=== PATIENT | male | born 1955 | race Caucasian/White ===

== ENCOUNTER 2022-10-07 15:40 | Outpatient (CLI) | payer MEDICARE, OTHER ==
[2022-10-07 16:29] LABS: Bilirubin Neg (Negative); Blood, Urine Negative (Negative); Clarity Clear (Clear); Glucose, Urine (Dipstick) Normal (Negative); Ketone, Urine Negative (Negative); Leukocyte Negative (Negative); Nitrite Negative (Negative); Protein, Urine (Dipstick) Negative (Neg-Trace); Specific Gravity, Urine 1.015 (1.005-1.030); pH, Urine 6.5 (5.0-9.0)
== END 2022-10-07 15:41 | disposition home or self-care (01) ==
LOC: LABBT 15:40
PROVIDERS: ATTEND Orthopaedic Surgery
DX: Z01.818 Encounter for other preprocedural examination (principal); M17.11 Unilateral primary osteoarthritis, right knee
CPT/HCPCS: 71046; 80048; 81003; 85025; 85610; 86850; 86900; 86901; 87081; 93005; 93010

== ENCOUNTER 2022-10-12 05:28 | Observation (INO) | payer MEDICARE, OTHER ==
[2022-10-07 16:56] LABS: #Eosinphils 0.1 10x3/uL (0.0-0.5); #Monocytes 0.4 10x3/uL (0.0-1.1); #Neutrophils 2.3 10x3/uL (1.5-8.4); %Basophils 0.7 % (0.0-2.0); %Eosinophils 1.6 % (0.0-6.0); %Lymphocytes 34.9 % (18.0-47.0); %Monocytes 9.8 % (0.0-10.0); Hemoglobin 13.5 g/dL (13.5-17.5); Mean Corpuscular HGB CONC 33.8 g/dL (32.0-36.0); Mean Corpuscular Hemoglobin 33.4 pg (27.0-33.0); Mean Corpuscular Volume 98.8 fl (81.2-95.1); Mean Platelet Volume 10.8 fl (7.4-10.4); Platelet Count 244 10x3/uL (150-450); RBC Distribution Width 13.2 % (11.5-14.5); Red Blood Cell (RBC) Count 4.04 10x6/uL (4.32-5.72); White Blood Cell (WBC) Count 4.4 10x3/uL (3.5-10.5)
[2022-10-07 17:02] LABS: INR-International Normal Ratio 0.9; Prothrombin Time 10.3 sec (9.5-12.1)
[2022-10-07 17:10] LABS: Anion Gap 13 mmol/L (10-20); BUN (Urea Nitrogen) 12 mg/dL (8.4-25.7); Calc. Creatinine Clearance 0 mL/min (70-130); Calcium 8.9 mg/dL (7.8-10.44); Carbon Dioxide 32 mmol/L (23-31); Chloride 100 mmol/L (98-107); Estimated GFR 99; Glucose 154 mg/dL (80-115); Potassium 3.8 mmol/L (3.5-5.1); Sodium 141 mmol/L (136-145)
[2022-10-09 10:38] VITALS: BMI 30.1
[2022-10-12] MEDS ORDERED: Vancomycin (BATCH) 1.5 GRAM/300 ML BAG ONE (06:02)
[2022-10-12] MEDS ORDERED: CEFAZOLIN 2 GM VIAL ONE (06:03)
[2022-10-12] MEDS ORDERED: Sodium Chloride 0.9% 100 ML ONE ×2 (06:03→06:04)
[2022-10-12] MEDS ORDERED: Tranexamic Acid 1,000 MG/10 ML VIAL ONE ×2 (06:03→09:34)
[2022-10-12] MEDS ORDERED: Fentanyl 250 MCG/5 ML VIAL ONE (06:16)
[2022-10-12] MEDS ORDERED: Midazolam HCl 2 mg/2 ml Vial ONE (06:46)
[2022-10-12] MEDS ORDERED: Bupivacaine 0.25% HCL 30 ML VIAL ONE (06:52)
[2022-10-12] MEDS ORDERED: PROPOFOL 200 MG/20 ML VIAL ONE (06:55)
[2022-10-12] MEDS ORDERED: Dexamethasone 20 MG/5 ML VIAL ONE (06:55)
[2022-10-12] MEDS ORDERED: Ondansetron PF 4 MG/2 ML Vial ONE (06:55)
[2022-10-12] MEDS ORDERED: Acetaminophen 325 MG TAB PO PRN (07:39)
[2022-10-12] MEDS ORDERED: Fentanyl 100 MCG/2 ML VIAL SLOW IVP PRN (07:39)
[2022-10-12] MEDS ORDERED: Zolpidem Tartrate 5 MG TAB PO PRN ×2 (07:39→08:15)
[2022-10-12] MEDS ORDERED: Ondansetron PF 4 MG/2 ML Vial IVP PRN ×2 (07:39→08:15)
[2022-10-12] MEDS ORDERED: traMADol HCl 50 MG TAB PO PRN ×3 (07:39→08:15)
[2022-10-12] MEDS ORDERED: HYDROcodone/Acetaminophen 10/325 mg Tablet PO PRN ×3 (07:39→08:15)
[2022-10-12] MEDS ORDERED: diphenhydrAMINE 25 MG CAP PO PRN (07:39)
[2022-10-12] MEDS ORDERED: Promethazine HCl 25 MG/ML VIAL IM PRN ×3 (07:39→08:15)
[2022-10-12] MEDS ORDERED: Tranexamic Acid 1,000 MG in Sodium Chloride 0.9% 100 ML IVPB SCH (07:45)
[2022-10-12] MEDS ORDERED: HYDROmorphone 2 MG/ML VIAL SLOW IVP PRN (07:47)
[2022-10-12] MEDS ORDERED: Promethazine HCl 25 MG/ML VIAL IVPB PRN (07:47)
[2022-10-12] MEDS ORDERED: Ondansetron HCl/PF 4 MG/2 ML Vial IVP PRN (07:47)
[2022-10-12 08:01] LABS: SARS-CoV-2 NAA Rapid Test DETECTED (NotDetected)
[2022-10-12] MEDS ORDERED: Fentanyl 100 MCG/2 ML VIAL IV PRN (08:08)
[2022-10-12] MEDS ORDERED: Ropivacaine 0.2% 550 ML 550 ML NERVE BLCK SCH (08:15)
[2022-10-12] MEDS ORDERED: Non-Formulary Item 1 EACH (Multivit-Min/Folic/Vit K/Lycop [Men's Multivitamin Tablet] 1 E PO SCH (09:00)
[2022-10-12] MEDS ORDERED: Fentanyl 100 MCG/2 ML VIAL ONE (09:30)
[2022-10-12] MEDS ORDERED: HYDROmorphone 0.5 MG/0.5 ML SYRINGE ONE (09:30)
[2022-10-12] MEDS: Multivitamin W/ Minerals 1 TAB PO SCH (11:45)
[2022-10-12] MEDS: Aspirin 81 mg Enteric Coated Tablet PO SCH ×2 (11:45→21:10)
[2022-10-12] MEDS: Senokot S 8.6-50 MG TAB PO SCH ×2 (11:45→21:10)
[2022-10-12] MEDS: Ferrous Gluconate 324 MG TAB PO SCH ×2 (11:45→21:10)
[2022-10-12] MEDS: Calcium Carbonate 500 MG TAB PO SCH (11:45)
[2022-10-12] MEDS: Sodium Chloride 0.9% 1,000 ML IV SCH ×2 (11:46→18:32)
[2022-10-12] MEDS ORDERED: Ketorolac Tromethamine 30 MG/ML VIAL IVP SCH (12:00)
[2022-10-12] MEDS ORDERED: Ropivacaine 0.5% HCl/PF (150 MG/30 ML VIAL) ONE (12:31)
[2022-10-12] MEDS: CEFAZOLIN 2 GM in Sodium Chloride 0.9% 100 ML IVPB SCH ×2 (13:36→21:06)
[2022-10-12] MEDS: Ketorolac Tromethamine 30 MG/ML VIAL IVP SCH ×2 (13:36→21:11)
[2022-10-12] MEDS ORDERED: Vancomycin HCl 1.5 GM in Sodium Chloride 0.9% 250 ML 300 ML IVPB SCH (18:00)
[2022-10-12] MEDS ORDERED: Vancomycin 1.5 GRAM/300 ML BAG 1.5 GM in Premix Bag 1 BAG IVPB SCH (18:30)
[2022-10-12] MEDS ORDERED: Non-Formulary Item 1 EACH (Tadalafil [Cialis] 5 MG Tablet) PO SCH (21:00)
[2022-10-12] MEDS ORDERED: Pioglitazone HCl 15 MG TAB PO SCH (21:00)
[2022-10-12] MEDS ORDERED: Atorvastatin Calcium 40 MG TAB PO SCH (21:00)
[2022-10-12] MEDS ORDERED: Lisinopril 20 MG TAB PO SCH (21:00)
[2022-10-12] MEDS ORDERED: Amlodipine 5 MG TAB PO SCH (21:00)
[2022-10-12] MEDS: HYDROcodone/Acetaminophen 10/325 mg Tablet PO PRN (21:21)
[2022-10-13] MEDS: Sodium Chloride 0.9% 1,000 ML IV SCH ×2 (04:08→12:58)
[2022-10-13] MEDS: Ketorolac Tromethamine 30 MG/ML VIAL IVP SCH ×2 (05:20→13:42)
[2022-10-13] MEDS: HYDROcodone/Acetaminophen 10/325 mg Tablet PO PRN ×2 (05:21→12:07)
[2022-10-13 06:35] LABS: Hemoglobin 11.7 g/dL (14.0-18.0); Mean Corpuscular HGB CONC 33.4 g/dL (32.0-36.0); Mean Corpuscular Hemoglobin 34.6 pg (27.0-31.0); Mean Platelet Volume 8.4 fL (7.4-10.4); Platelet Count 234 10x3/uL (130-400); RBC Distribution Width 11.7 % (11.5-14.5); Red Blood Cell (RBC) Count 3.37 mill/uL (4.70-6.10); White Blood Cell (WBC) Count 7.6 10x3/uL (4.8-10.8)
[2022-10-13] MEDS ORDERED: Amlodipine 5 MG TAB PO SCH (06:53)
[2022-10-13] MEDS ORDERED: Lisinopril 20 MG TAB PO SCH (06:53)
[2022-10-13 07:55] LABS: Anion Gap 12 mmol/L (10-20); BUN (Urea Nitrogen) 10 mg/dL (8.4-25.7); Calc. Creatinine Clearance 138 mL/min (70-130); Calcium 8.3 mg/dL (7.8-10.44); Carbon Dioxide 27 mmol/L (23-31); Chloride 104 mmol/L (98-107); Estimated GFR 101; Glucose 146 mg/dL (80-115); Potassium 3.7 mmol/L (3.5-5.1); Sodium 139 mmol/L (136-145)
[2022-10-13] MEDS ORDERED: FLU VACC QS2022-23(65YR UP)/PF 240 MCG/0.7 ML SYRINGE IM ONE (09:00)
[2022-10-13] MEDS: Calcium Carbonate 500 MG TAB PO SCH (10:06)
[2022-10-13] MEDS: Multivitamin W/ Minerals 1 TAB PO SCH (10:06)
[2022-10-13] MEDS: Aspirin 81 mg Enteric Coated Tablet PO SCH (10:06)
[2022-10-13] MEDS: Senokot S 8.6-50 MG TAB PO SCH (10:06)
[2022-10-13] MEDS: Ferrous Gluconate 324 MG TAB PO SCH (10:06)
[2022-10-13 13:19] VITALS: BP 120/68; TEMP 98.6
== END 2022-10-13 13:55 | disposition home or self-care (01) ==
LOC: SDC 05:28 → SJJU 10:39
PROVIDERS: ADMIT Orthopaedic Surgery; ATTEND Orthopaedic Surgery
PROC: 0SRC0J9 Replacement of Right Knee Joint with Synthetic Substitute, Cemented, Open Approach (ICD-10-PCS; principal; 2022-10-12)
DX: M17.11 Unilateral primary osteoarthritis, right knee (principal); M92.521 Juvenile osteochondrosis of tibia tubercle, right leg; S83.522A Sprain of posterior cruciate ligament of left knee, initial encounter; U07.1 COVID-19; E11.9 Type 2 diabetes mellitus without complications; I10 Essential (primary) hypertension; E78.5 Hyperlipidemia, unspecified; Z79.84 Long term (current) use of oral hypoglycemic drugs; Z79.899 Other long term (current) drug therapy
CPT/HCPCS: 27447; 80048 ×2; 82962; 85025; 85027; 85610; 86850; 86900; 86901; 97110 ×2; 97116 ×2; 97530 ×2; A4306; C1713; C1776; J3370; U0002; 36415; 36416; 96365; 96375; 96376; G0378; J1100; J1170; J1885; J2250; J2405; J2704; J2795; J3010; J3490; S0020

== ENCOUNTER 2022-10-16 10:17 | Emergency (ER) | payer MEDICARE, OTHER ==
[2022-10-16 11:01] LABS: #Eosinphils 0.1 thou/uL (0.0-0.7); #Lymphocytes 1.4 thou/uL (1.20-3.40); #Monocytes 0.5 thou/uL (0.11-0.59); #Neutrophils 5.3 thou/uL (1.40-6.50); %Basophils 0.1 % (0.0-1.0); %Eosinophils 1.2 % (0.0-10.0); %Lymphocytes 19.5 % (21.0-51.0); %Monocytes 7.2 % (0.0-10.0); Hemoglobin 11.8 g/dL (14.0-18.0); Mean Corpuscular HGB CONC 33.6 g/dL (32.0-36.0); Mean Corpuscular Hemoglobin 34.9 pg (27.0-31.0); Platelet Count 313 10x3/uL (130-400); RBC Distribution Width 11.7 % (11.5-14.5); White Blood Cell (WBC) Count 7.4 10x3/uL (4.8-10.8)
[2022-10-16 11:10] LABS: Bacteria/HPF None Seen HPF (None Seen); Bilirubin Negative (Negative); Blood, Urine 1+ (Negative); Clarity Clear (Clear); Glucose, Urine (Dipstick) Normal (Negative); Ketone, Urine 40 mg/dL (Negative); Leukocyte Negative Leu/uL (Negative); Nitrite Negative (Negative); Protein, Urine (Dipstick) Negative (Neg-Trace); Squamous Epithelial None Seen HPF (0-3); Urobilinogen Normal mg/dL (Less than 2); WBC/HPF 0-3 HPF (0-3); pH, Urine 6.5 (5.0-9.0)
[2022-10-16 11:19] LABS: ALT (SGPT) 19 U/L (8-55); AST (SGOT) 16 U/L (5-34); Albumin 3.9 g/dL (3.4-4.8); Alkaline Phosphatase 45 U/L (40-110); Anion Gap 12 mmol/L (10-20); BUN (Urea Nitrogen) 10 mg/dL (8.4-25.7); Calc. Creatinine Clearance 0 mL/min (70-130); Calcium 9.3 mg/dL (7.8-10.44); Carbon Dioxide 30 mmol/L (23-31); Chloride 100 mmol/L (98-107); Estimated GFR 101; Globulin 2.9 g/dL (2.4-3.5); Glucose 133 mg/dL (80-115); Potassium 3.9 mmol/L (3.5-5.1); Protein, Total 6.8 g/dL (5.8-8.1); Sodium 138 mmol/L (136-145)
== END 2022-10-16 12:09 | disposition home or self-care (01) ==
LOC: ERS 10:17
DX: R31.9 Hematuria, unspecified (principal); I10 Essential (primary) hypertension; E78.00 Pure hypercholesterolemia, unspecified; Z79.899 Other long term (current) drug therapy
CPT/HCPCS: 36415; 80053; 81003; 81015; 85025; 87086; 99283